=== PATIENT | female | born 2000 | race African-American/Black ===

== ENCOUNTER 2024-01-26 11:03 | Emergency (ER) | payer BC, SELFPAY ==
[2024-01-26 11:08] VITALS: BP 107/71; PULSE 128; RESP 16; TEMP 37.9; O2SAT 97; BMI 26.2
--- NOTE | 2024-01-26 11:28 | ED.GENADULT ---
HPI - General Adult General Chief complaint: Sore Throat Stated complaint: Sore throat Time Seen by Provider: 01/26/24 11:06 History of Present Illness HPI narrative: This 23-year-old female comes in reporting sore throat for the past 4 5 days. She states that is very difficult for her to swallow and it hurts to talk. She does not have a cough. She does arrive with a borderline fever and temperature at 1 100.2? F. she does not report any shortness of breath. Related Data Previous Rx's ?Medication ?Instructions ?Recorded amoxicillin 875 mg-potassium 1 tab PO BID #14 tabs 01/26/24 clavulanate 125 mg tablet ketorolac 10 mg tablet 10 mg PO Q8H 5 days #15 tabs 01/26/24 methylprednisolone 4 mg tablets in See Rx Instructions PO .COMPLEX 01/26/24 a dose pack (Medrol (Kvng)) #21 ea Allergies Allergy/AdvReac Type Severity Reaction Status Date / Time No Known Drug Allergies Allergy Verified 01/26/24 11:14 Review of Systems Status of ROS: Reports: 10 or more systems reviewed and unremarkable except as noted in History and below Narrative: Constitutional: No fevers, no weight gain or loss. Eyes: No discharge. No vision changes. HENT: No congestion, no ear pain. Sore throat as described above. Cardiovascular: No chest pain, no palpitations. Respiratory: No shortness of breath, no wheezes, no cough. Gastrointestinal: No abdominal pain, no vomiting, no diarrhea. Genitourinary: No dysuria, no hematuria. Musculoskeletal: Normal range of motion. Skin: No rashes, no pruritis. Neurological: No dizziness, weakness, sensory change, speech change. Endo/Heme/Allergies: No bruising or bleeding. No polydipsia. Pysch: no suicidality, no anxiety, no insomnia. All other systems reviewed and are negative. PFSH PFSH Social History Smoking Status: Never smoker How often do you have a drink containing alcohol: 2-3 times a week AUDIT-C Alcohol total score: 3 Non-prescribed substance use: denies use Exam Narrative: Exam Narrative: Constitutional: Well-developed, well-nourished, no acute distress. HEENT: Normocephalic, atraumatic. Oropharynx shows erythema without findings suspicious of tonsillar abscess. There is moderate bilateral tonsillar swelling. I do not see any exudate. She does have some trismus but no muffled voice. She has some bilateral cervical lymphadenopathy. Neck: Normal range of motion. Nontender. Supple. Heart: Regular. No murmurs. Normal rate. Intact distal pulses. Lungs: Clear to auscultation. No chest discomfort. No wheezes, rhonchi, or rales. Abdomen: Normal bowel sounds. Nontender. No rebound tenderness. Genitalia: Deferred. Back: No midline tenderness. Normal range of motion. Extremities: Normal range of motion. No injury. Skin: Intact. No rash. Warm. No erythema or pallor. Neurologic: No altered sensation. No weakness. Alert and oriented. Psychiatric: No suicidality. No anxiety or depression. No insomnia. Nursing notes and vitals signs are reviewed. Const: Vital Signs, click to edit/add: Vital Signs - 24 hr 01/26/24 11:08 Temperature 100.2 F H Pulse Rate [Pulse Oximeter] 128 H Respiratory Rate 16 Blood Pressure [Ri ght Upper Arm] 107/71 Pulse Oximetry 97 Oxygen Delivery Me thod Room Air Course Vital Signs Vital signs: Initial Vital Signs Temperature 100.2 F H 01/26/24 11:08 Temperature Source Temporal Artery Scan 01/26/24 11:08 Pulse Rate 128 H 01/26/24 11:08 Respiratory Rate 16 01/26/24 11:08 Respiratory Effort Normal 01/26/24 11:08 Respiratory Depth Normal 01/26/24 11:08 Respiratory Pattern Normal 01/26/24 11:08 Blood Pressure 107/71 01/26/24 11:08 Blood Pressure Mean 83 01/26/24 11:08 Pulse Oximetry 97 01/26/24 11:08 Oxygen Delivery Method Room Air 01/26/24 11:08 Vital Signs Temperature 100.2 F H 01/26/24 11:08 Pulse Rate 128 H 01/26/24 11:08 Respiratory Rate 16 01/26/24 11:08 Blood Pressure 107/71 01/26/24 11:08 Pulse Oximetry 97 01/26/24 11:08 Oxygen Delivery Method Room Air 01/26/24 11:08 Temperature 100.2 F H 01/26/24 11:08 Pulse Rate 128 H 01/26/24 11:08 Respiratory Rate 16 01/26/24 11:08 Blood Pressure 107/71 01/26/24 11:08 Pulse Oximetry 97 01/26/24 11:08 Oxygen Delivery Method Room Air 01/26/24 11:08 Medications Administered Medications: Discontinued Medications Generic Name Dose Route Start Last Admin Trade Name Marlo PRN Reason Stop Dose Admin Dexamethasone 10 mg 01/26/24 11:26 01/26/24 11:35 Dexamethasone 10 Mg/Ml Inj PO 01/26/24 11:27 10 mg ONCE ONE Administration Ketorolac Tromethamine 10 mg 01/26/24 11:34 01/26/24 11:43 Ketorolac 10 Mg Tablet PO 01/26/24 11:35 10 mg ONCE ONE Administration Medical Decision Making MDM Narrative Medical decision making narrative: This patient received an oral dose of dexamethasone and Toradol for symptomatic relief. Rapid strep test returns negative. The patient does have some trismus and has had sore throat for 5 days. There is tonsillar swelling but no significant enough findings to warrant CT imaging at this time. I did prescribe Augmentin, Toradol, and Medrol Dosepak and instructed her to return if not improving. Lab Data Labs: Lab Results 01/26/24 Range/Units 11:35 Group A Strep DNA NOT DETECTED (Not Detectd) Discharge Plan Discharge Clinical Impression: Acute tonsillitis Patient Disposition: Home, Self-Care Condition: Improved Additional Instructions: Take medications as prescribed. Follow up with MD or return if worsening symptoms occur. Prescriptions: New ketorolac 10 mg tablet 10 mg PO Q8H 5 Days Qty: 15 0RF methylprednisolone [Medrol (Kvng)] 4 mg tablets,dose pack See Rx Instructions .ROUTE .COMPLEX Qty: 21 0RF Rx Instructions: orally per package directions amoxicillin-pot clavulanate 875-125 mg tablet 1 tab PO BID Qty: 14 0RF Follow Up/Referrals: Provider,Not a Local [Primary Care Provider] - Stand Alone Forms: [facility] Info Instructions
[2024-01-26] MEDS: dexAMETHasone 10 MG/ML inj PO (11:35)
[2024-01-26] MEDS: KETOROLAC 10 MG TABLET PO (11:43)
[2024-01-26 12:10] LABS: Strep A DNA Probe* NOT DETECTED (Not Detectd)
== END 2024-01-26 12:52 | disposition home or self-care (01) ==
PROVIDERS: Emergency Provider Emergency Medicine Emergency Medical Services
DX: J03.90 Acute tonsillitis, unspecified (principal)
CPT/HCPCS: 87651; 99283; 99284; A9270; J1100

== ENCOUNTER 2024-01-27 10:28 | Observation (INO) | payer BC, SELFPAY ==
[2024-01-27] VITALS (11 sets, daily range): BP systolic 92–108; BP diastolic 60–70; PULSE 90–118; RESP 16–20; TEMP 36.6–37; O2SAT 98–100; BMI 26.0; BMI 25.8
--- NOTE | 2024-01-27 10:52 | ED.GENADULT ---
HPI - General Adult General Date Seen: 01/27/24 Chief complaint: Ear/Nose/Throat Problem Stated complaint: swollen tonsils abscess rupture Time Seen by Provider: 01/27/24 10:52 History of Present Illness HPI narrative: 23-year-old female returns to the ER today for evaluation of sore throat. She was seen in this ER yesterday. At that time she had a sore throat for 4-5 days and painful swallowing and pain for with talking. No cough. She had a low-grade fever yesterday. She had erythema of her pharynx without finding suspicious for tonsillar abscess. Bilateral tonsillar swelling. No exudates. She did have some trismus. No voice muffling. Bilateral cervical lymphadenopathy. Nurses who are here with me today report that they were working yesterday and that she did have difficulty opening her mouth for exam and difficulty of opening her mouth to get the strep swab Strep swab yesterday was negative. However given the amount of erythema and swelling, with the trismus she was put on a Medrol Dosepak, treated with Toradol, and put on Augmentin. She says she has been feeling a bit better since yesterday. She is able to talk and swallow better this morning. No trouble breathing. Her previous trouble opening her mouth is actually better. She took her 1st dose of the steroids this morning. She has not started her Augmentin yet. She went to [facility]. While at [facility] she felt something rupture in the back of her throat and since then she has been having some foul tasting material draining from her tonsil. Related Data Previous Rx's ?Medication ?Instructions ?Recorded amoxicillin 875 mg-potassium 1 tab PO BID #14 tabs 01/26/24 clavulanate 125 mg tablet ketorolac 10 mg tablet 10 mg PO Q8H 5 days #15 tabs 01/26/24 methylprednisolone 4 mg tablets in See Rx Instructions PO .COMPLEX 01/26/24 a dose pack (Medrol (Kvng)) #21 ea Allergies Allergy/AdvReac Type Severity Reaction Status Date / Time No Known Drug Allergies Allergy Verified 01/27/24 10:37 [facility] Social History Smoking Status: Never smoker How often do you have a drink containing alcohol: 2-3 times a week AUDIT-C Alcohol total score: 3 Non-prescribed substance use: denies use Exam Narrative: Exam Narrative: Constitutional: Appears well-developed and well-nourished. Alert. Conversant. No trismus (up reportedly had trismus yesterday but now she is able to open her mouth widely) no stridor. Phonation normal Non toxic. HENT: Head: Atraumatic. Nose: Nose normal. Mouth/Throat: Oral mucosa is clear and moist. no trismus. Pharynx deeply erythematous bilaterally. There is suggestion of some right tonsillar asymmetric enlargement with complaint to the left and maybe some midline shift of the uvula from the right to the left. I do not see any active bleeding or drainage. Tongue normal. Submandibular tissues normal. Eyes: Conjunctivae normal. EOM normal. Pupils equal, round, and reactive to light. No scleral icterus. Neck: Normal range of motion. Neck supple. No tracheal deviation present. Cardiovascular: Normal rate, regular rhythm. No gallop. No friction rub. No murmur heard. Symmetric radial artery pulses Pulmonary/Chest: Effort normal. No stridor. No respiratory distress. No wheezes. No rales. No rhonchi . No tenderness. Musculoskeletal: RUE: Normal range of motion. No tenderness. No deformity LUE: Normal range of motion. No tenderness. No deformity RLE: Normal range of motion. No edema. No tenderness. No deformity LLE: Normal range of motion. No edema. No tenderness. No deformity Lymph: Right> left anterior cervical adenopathy. Neurological: Alert and oriented to person, place, and time. Normal strength. CN II-VII intact. No sensory deficit. GCS eye subscore is 4. GCS verbal subscore is 5. GCS motor subscore is 6. Normal coordination Skin: Skin is warm and dry. No rash noted. No pallor. Normal capillary refill. Psychiatric: Normal mood. Normal affect. Const: Vital Signs, click to edit/add: Vital Signs - 24 hr 01/27/24 10:34 Temperature 97.9 F Pulse Rate [Pulse Oximeter] 118 H Respiratory Rate 20 Blood Pressure [Ri ght Upper Arm] 108/70 Pulse Oximetry 99 Oxygen Delivery Me thod Room Air Course Vital Signs Vital signs: Initial Vital Signs Temperature 97.9 F 01/27/24 10:34 Temperature Source Temporal Artery Scan 01/27/24 10:34 Pulse Rate 118 H 01/27/24 10:34 Respiratory Rate 20 01/27/24 10:34 Blood Pressure 108/70 01/27/24 10:34 Blood Pressure Mean 82 01/27/24 10:34 Blood Pressure Position Sitting 01/27/24 10:34 Pulse Oximetry 99 01/27/24 10:34 Oxygen Delivery Method Room Air 01/27/24 10:34 Vital Signs Temperature 97.9 F 01/27/24 10:34 Pulse Rate 118 H 01/27/24 10:34 Respiratory Rate 20 01/27/24 10:34 Blood Pressure 108/70 01/27/24 10:34 Pulse Oximetry 99 01/27/24 10:34 Oxygen Delivery Method Room Air 01/27/24 10:34 Temperature 97.9 F 01/27/24 10:34 Pulse Rate 118 H 01/27/24 10:34 Respiratory Rate 20 01/27/24 10:34 Blood Pressure 108/70 01/27/24 10:34 Pulse Oximetry 99 01/27/24 10:34 Oxygen Delivery Method Room Air 01/27/24 10:34 Medications Administered Medications: Discontinued Medications Generic Name Dose Route Start Last Admin Trade Name Freq PRN Reason Stop Dose Admin Ampicillin Sodium/Sulbactam 100 mls @ 200 mls/hr 01/27/24 12:38 01/27/24 12:45 Sodium 3 gm/ Sodium Chloride IVPB 01/27/24 12:39 200 mls/hr ONCE ONE Administration Medical Decision Making MDM Narrative Medical decision making narrative: Pleasant generally healthy 23-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 She was seen yesterday in the ER for this pharyngitis and exam was apparently notable for significant trismus but no definite airway asymmetry. She was negative for strep but put on empiric Augmentin any way. She has not started the Augmentin yet but did receive a dose of steroids yesterday and another dose of steroids (orally) at home this morning. She started developing drainage (from her right tonsil, she thinks close is this this morning. Clinical exam reveals a patent airway, no trismus today so it must be much improved compared to yesterday. She is tachycardic but blood pressure is stable. She is afebrile. Labs show a white count of 14. Mccreary negative. CT scan of the patient's neck was undertaken to look for possible peritonsillar abscess. It does show a 13 mm peritonsillar abscess on the right and a 10 mm. Tonsillar abscess on the left. On the CT scan there is subtle asymmetry with the right tonsil and peritonsillar tissues being larger than the left. Discussed with our ENT, Dr. Clifford. He would recommend that we admit the patient for IV antibiotics and continue steroids. Given the size of these abscesses he would not recommend an immediate drainage. He would expect these abscesses should heal with antibiotics. First dose IV Unasyn administered here in the ER. Overall the patient is clinically well appearing and symptomatically much improved today compared to yesterday. Discussed test results with the patient, her college friend, and her parents (via FaceTime). Recommended that we admit for IV antibiotics. Patient is not sure she was stay in the hospital since she is doing so much better today compared to yesterday. Discussed that with bilateral abscesses she may yet need surgical drainage and perhaps our best chance of avoiding that would be IV antibiotics. Patient agrees for admission. Discussed with our hospitalist, Dr. Price who graciously came to the ER to evaluate this patient. Lab Data Labs: Lab Results 01/27/24 Range/Units 11:15 WBC 14.31 H (4.50-11.00) K/uL RBC 4.03 (4.00-5.20) m/uL Hgb 11.5 L (12.0-16.0) gm/dL Hct 35.4 (33.0-51.0) % MCV 88 (80-100) fL MCH 29 (26-34) pg MCHC 33 (32-36) gm/dL RDW Coeff of Mari 12.8 (11.5-15.5) % Plt Count 352 (140-440) K/uL Neut % (Auto) 78.1 H (42.0-72.0) % Lymph % (Auto) 12.9 L (20-44) % Mccreary % (Auto) 8.5 (0.0-11.0) % Eos % (Auto) 0.1 (0.0-7.0) % Baso % (Auto) 0.3 (0.0-3.0) % Neut # (Auto) 11.20 H (1.7-7.0) K/uL Lymph # (Auto) 1.80 (0.90-2.90) K/uL Mccreary # (Auto) 1.20 H (0.00-0.90) K/UL Eos # (Auto) 0.00 (0.00-0.50) K/uL Baso # (Auto) 0.00 (0.00-0.30) K/uL Abs Immat Gran (auto) 0.00 (0.00-0.30) K/uL Imm/Tot Granulo (auto) 0.1 % Sodium 137 (135-149) mmol/L Potassium 3.2 L (3.6-5.1) mmol/L Chloride 101 (96-114) mmol/L Carbon Dioxide 23 (20-32) mmol/L Anion Gap 13 (7-15) mEq/L BUN 16 (5-24) mg/dL Creatinine 0.7 (0.5-1.5) mg/dL Estimated Creat Clear 105.60 Estimated GFR 126 ml/min Glucose 105 (60-115) mg/dL Calcium 9.3 (8.4-10.6) mg/dL Monoscreen Negative (Negative) Imaging Data CT neck soft tissue with contrast: Attestation: I have reviewed the pertinent imaging results. My impression: Right peritonsillar or tonsillar hypoechoic fluid collection suspicious for abscess. Also possible left peritonsillar abscess as well. awaiting radiology read Radiologist's impression: FINDINGS: Normal bilateral parotid and submandibular glands. Normal thyroid gland. Enlargement of bilateral level 2 and 3 lymph nodes which are likely reactive. There is enlargement of the bilateral tonsillar pillars. Edema and inflammation within the parapharyngeal fat pads. There are focal areas of low-attenuation within the peritonsillar soft tissues measures approximate 13 mm maximal diameter on the right and 10 mm maximum diameter left (series 3, image 19) consistent with peritonsillar abscess formation. Edema and inflammation extends into the mucosa submucosa of the oropharynx. Normal thickness of the epiglottis. No mass is imaged the base of tongue. Normal glottis with symmetric vocal cords. Lung apices are clear. Normal alignment of cervical spine. No prevertebral soft tissue swelling. FINDINGS: 1. Bilateral peritonsillar abscesses, [id number]-left. 2. Edema and inflammation extends into the mucosa and submucosa at the oropharynx. 3. No prevertebral soft tissue swelling. 4. Reactive adenopathy Discharge Plan Discharge Clinical Impression: Peritonsillar abscess, Acute tonsillitis Prescriptions: No Action ketorolac 10 mg tablet 10 mg PO Q8H 5 Days Qty: 15 0RF methylprednisolone [Medrol (Kvng)] 4 mg tablets,dose pack See Rx Instructions .ROUTE .COMPLEX Qty: 21 0RF Rx Instructions: orally per package directions amoxicillin-pot clavulanate 875-125 mg tablet 1 tab PO BID Qty: 14 0RF Follow Up/Referrals: Provider,Not a Local [Primary Care Provider] -
--- NOTE | 2024-01-27 11:08 | CRLHL7_ITS ---
For Patients: As a result of the Century Cures Act, medical imaging exams and procedure reports are released immediately into your electronic medical record. You may view this report before your referring provider. If you have questions, please contact your health care provider. INDICATION: Pharyngitis. COMPARISON: None. TECHNIQUE: CT soft tissue neck with IV contrast. ICD 370, 50 60 cc. FINDINGS: Normal bilateral parotid and submandibular glands. Normal thyroid gland. Enlargement of bilateral level 2 and 3 lymph nodes which are likely reactive. There is enlargement of the bilateral tonsillar pillars. Edema and inflammation within the parapharyngeal fat pads. There are focal areas of low-attenuation within the peritonsillar soft tissues measures approximate 13 mm maximal diameter on the right and 10 mm maximum diameter left (series 3, image 19) consistent with peritonsillar abscess formation. Edema and inflammation extends into the mucosa submucosa of the oropharynx. Normal thickness of the epiglottis. No mass is imaged the base of tongue. Normal glottis with symmetric vocal cords. Lung apices are clear. Normal alignment of cervical spine. No prevertebral soft tissue swelling. FINDINGS: 1. Bilateral peritonsillar abscesses, [id number]-mcih-left. 2. Edema and inflammation extends into the mucosa and submucosa at the oropharynx. 3. No prevertebral soft tissue swelling. 4. Reactive adenopathy Please note that all CT scans at this facility use dose modulation, iterative reconstruction, and/or weight-based dosing when appropriate to reduce radiation dose to as low as reasonably achievable. Dictated by Armond Falk MD @ 01/27/2024 12:17:11 PM (Electronically Signed)
[2024-01-27 11:34] LABS: Basophils Percent Auto 0.3 % (0.0-3.0); Eosinophils Percent Auto 0.1 % (0.0-7.0); Hematocrit 35.4 % (33.0-51.0); Hemoglobin* 11.5 gm/dL (12.0-16.0); Immature Granulocytes Pct Auto 0.1 %; Lymphocytes Percent Auto 12.9 % (20-44); Mean Corpuscular HGB Conc 33 gm/dL (32-36); Mean Corpuscular Hemoglobin 29 pg (26-34); Mean Corpuscular Volume 88 fL (80-100); Monocytes Percent Auto 8.5 % (0.0-11.0); Neutrophils Percent Auto 78.1 % (42.0-72.0); Platelet Count* 352 K/uL (140-440); RDW Coefficient of Variation % 12.8 % (11.5-15.5); Red Blood Count 4.03 m/uL (4.00-5.20); White Blood Count* 14.31 K/uL (4.50-11.00)
[2024-01-27 11:35] LABS: Slide Review Reflex No
[2024-01-27 11:46] LABS: Chloride* 101 mmol/L (96-114)
[2024-01-27 11:47] LABS: Potassium* 3.2 mmol/L (3.6-5.1); Sodium* 137 mmol/L (135-149)
[2024-01-27 11:49] LABS: Creatinine* 0.7 mg/dL (0.5-1.5); Estimated Glomerular Filt Rate 126 ml/min
[2024-01-27 11:50] LABS: Anion Gap 13 mEq/L (7-15); Blood Urea Nitrogen* 16 mg/dL (5-24); Calcium* 9.3 mg/dL (8.4-10.6); Carbon Dioxide* 23 mmol/L (20-32); Glucose* 105 mg/dL (60-115)
[2024-01-27 11:53] LABS: Mono Screen* Negative (Negative)
[2024-01-27] MEDS: AMPICILLIN/SULBACTAM 3 GM in 0.9 % SODIUM CHLORIDE Mini-bag 100 ML IVPB ×2 (12:45→18:54)
--- NOTE | 2024-01-27 13:42 | PM.IMHP1 ---
Hospitalist- H&P: HPI History of Present Illness Date Seen: 01/27/24 Chief complaint: swollen tonsils abscess rupture Narrative: Brooke Black is a 23 year old previously healthy female admitted through the emergency department with 1 week history of worsening sore throat. Symptoms started a week ago. Admitting getting progressively worse over the past week. She was seen in our emergency department yesterday where she was diagnosed with tonsillitis and started on Augmentin, Ketoralac, Medrol Dosepak. She was feeling a little better today except her right tonsil where she is having most of the pain started to drain some purulent material into her throat. She has had some trismus and some difficulty eating solid food. It is painful to swallow. She does not feel like she is having trouble breathing or that she is losing her voice. She did have a fever yesterday. She has had some nasal congestion. No significant cough. No abdominal pain, nausea or vomiting. Strep and mono tests are negative. CT shows bilateral peritonsillar abscesses right greater than left, 13 mm and 10 mm. 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 Home is [facility]. No previous hospitalizations. Previous surgery with wisdom teeth extraction and dental surgery. No chronic medical problems. No chronic medications. No drug allergies. She drinks alcohol socially. She does not smoke. She does not use recreational drugs. Review of Systems Narrative: Unremarkable except as noted above [facility] Medical History (Updated 01/27/24 @ 13:54 by Danny Price MD) Migraines ?G43.909 - Migraine, unspecified, not intractable, without status migrainosus (ICD-10) Surgical History (Updated 01/27/24 @ 13:49 by Danny Price MD) [place] teeth extracted ?K08.409 - Partial loss of teeth, unspecified cause, unspecified class (ICD-10) Family History (Updated 01/27/24 @ 13:49 by Danny Price MD) Mother Breast cancer Social History (Updated 01/27/24 @ 13:50 by Danny Price MD) Narrative: Senior at [employer]. Home is [facility]. Smoking Status: Never smoker How often do you have a drink containing alcohol: 2-3 times a week AUDIT-C Alcohol total score: 3 Non-prescribed substance use: denies use Meds Home Medications and Allergies Allergies Allergy/AdvReac Type Severity Reaction Status Date / Time No Known Drug Allergies Allergy Verified 01/27/24 10:37 Exam Narrative: Exam Narrative: She is alert and appears in no distress. Slight muffling of her voice when she speaks. Eyes normal. Pinnas external canals and TMs normal. Oropharynx with mild trismus. Bilateral tonsillar swelling and erythema and exudate, right greater than left. Tonsils nearly meet in the midline. Neck is supple. She has mild tenderness and adenopathy in the right anterior cervical chain. No significant adenopathy or tenderness on the left. No stridor. Respirations are clear to auscultation. Cardiovascular: S1, S2, regular tachycardia. Abdomen is soft without tenderness or hepato splenomegaly. No rash. Intact pulses and good perfusion in all 4 extremities. Const: Vital Signs, click to edit/add: Vital Signs - 24 hr 01/27/24 10:34 Temperature 97.9 F Pulse Rate [Pulse Oximeter] 118 H Respiratory Rate 20 Blood Pressure [Ri ght Upper Arm] 108/70 Pulse Oximetry 99 Oxygen Delivery Me thod Room Air Documenting provider has reviewed patient's vital signs: yes Hospitalist - H&P: Result Labs Labs: Short CBC 01/27/24 Range/Units 11:15 WBC 14.31 H (4.50-11.00) K/uL Hgb 11.5 L (12.0-16.0) gm/dL Hct 35.4 (33.0-51.0) % Plt Count 352 (140-440) K/uL BMP 01/27/24 11:15 Sodium 137 Potassium 3.2 L Chloride 101 Carbon Dioxide 23 BUN 16 Creatinine 0.7 Glucose 105 Calcium 9.3 Assessment and Plan Assessment and plan (1) Peritonsillar abscess: Problem comment: Bilateral, right greater than left, 13 and 10 mm. Monitor for worsening. IV antibiotics. Analgesics. Oral fluids as tolerated. Dr. Clifford contacted. Status: Acute (2) Hypokalemia: Problem comment: Likely due to poor p.o. intake recently. Replace and follow Status: Acute Plan Patient admitted to the hospital for IV antibiotics, monitoring of oral intake and airway, pain management. Possible discharge to home in the next day or 2 if clinically improving or ENT surgery if getting worse. Total Time Spent Total Time Spent: Total time spent today is 60 minutes in evaluation and management and discussing with patient and other providers management of peritonsillar abscess
[2024-01-27 13:55] LABS: HCG Qualitative Serum* Negative (Negative)
[2024-01-27] MEDS: POTASSIUM BICARB 25 MEQ EFFERVESCENT TAB PO (15:57)
--- NOTE | 2024-01-27 18:26 | PC.NURSE ---
Shift Note: Pt arrived to unit at 1447. She ambulates independently and appears comfortable at this time. She states her throat feels swollen, but only discomfort on the right side 07/21. She states this is significantly improved from when she believes they ruptured earlier today. VS WNL and LS COA. Afebrile. Pt tolerating full liquids and informed she will be NPO at 0000.
[2024-01-27] MEDS: OXYCODONE 1 MG/ML ORAL SOLN 5 MG PO (21:37)
[2024-01-27] MEDS: ACETAMINOPHEN 160 MG/5 ML CUP 640 MG PO (21:38)
[2024-01-27] MEDS: 0.9 % SODIUM CHLORIDE 250 ml IV (21:40)
[2024-01-27] MEDS: SODIUM CHLORIDE 0.9 % (FLUSH) 10 ML SYRINGE 5 ML IVF (21:40)
[2024-01-28] VITALS (7 sets, daily range): BP systolic 89–99; BP diastolic 53–67; PULSE 79–100; RESP 14–16; TEMP 36.6–37; O2SAT 97–100
[2024-01-28] MEDS: AMPICILLIN/SULBACTAM 3 GM in 0.9 % SODIUM CHLORIDE Mini-bag 100 ML IVPB ×4 (00:10→18:48)
[2024-01-28] MEDS: IBUPROFEN 100 MG/5 ML SUSP 400 MG PO ×3 (00:12→17:50)
--- NOTE | 2024-01-28 04:33 | PC.NURSE ---
Pt NPO since 0000. Pain controlled. Afebrile. IND in room.
[2024-01-28 06:32] LABS: Basophils Percent Auto 0.3 % (0.0-3.0); Eosinophils Percent Auto 0.2 % (0.0-7.0); Hematocrit 36.5 % (33.0-51.0); Hemoglobin* 11.7 gm/dL (12.0-16.0); Immature Granulocytes Pct Auto 0.2 %; Lymphocytes Percent Auto 21.6 % (20-44); Mean Corpuscular HGB Conc 32 gm/dL (32-36); Mean Corpuscular Hemoglobin 29 pg (26-34); Mean Corpuscular Volume 89 fL (80-100); Monocytes Percent Auto 7.6 % (0.0-11.0); Neutrophils Percent Auto 70.1 % (42.0-72.0); Platelet Count* 365 K/uL (140-440); RDW Coefficient of Variation % 12.9 % (11.5-15.5); White Blood Count* 13.13 K/uL (4.50-11.00)
[2024-01-28 06:48] LABS: Chloride* 103 mmol/L (96-114); Potassium* 4.2 mmol/L (3.6-5.1); Sodium* 140 mmol/L (135-149)
[2024-01-28 06:51] LABS: Anion Gap 9 mEq/L (7-15); Carbon Dioxide* 28 mmol/L (20-32); Creatinine* 0.6 mg/dL (0.5-1.5); Est. Creatinine Clearance* 122.35; Estimated Glomerular Filt Rate 131 ml/min
[2024-01-28 06:52] LABS: Blood Urea Nitrogen* 13 mg/dL (5-24); Calcium* 9.3 mg/dL (8.4-10.6); Glucose* 86 mg/dL (60-115)
[2024-01-28 06:53] LABS: Slide Review Reflex No
[2024-01-28] MEDS: ACETAMINOPHEN 160 MG/5 ML CUP 640 MG PO ×2 (09:30→13:30)
[2024-01-28] MEDS: SODIUM CHLORIDE 0.9 % (FLUSH) 10 ML SYRINGE 5 ML IVF ×2 (09:40→21:20)
[2024-01-28] MEDS: dexAMETHasone 4 MG TABLET 10 MG PO (12:04)
--- NOTE | 2024-01-28 13:58 | P.IMPN_ITS ---
Progress Note: A&P Assessment and plan (1) Peritonsillar abscess: Problem details: Bilateral, right greater than left, 13 and 10 mm. Monitor for worsening. IV antibiotics. Analgesics. Oral fluids as tolerated. Dr. Clifford contacted. Status: Acute (2) Hypokalemia: Problem details: Likely due to poor p.o. intake recently. Resolved after replacement. Status: Acute Plan Continue in hospital for 1 more day of IV antibiotics and analgesics management. Anticipate discharge to home if continued improvement. Time Spent With Patient Total time spent: Total time spent today is 40 minutes in evaluation management. Subjective Date Seen: 01/28/24 Interval history: Brooke Black is a 23 year old previously healthy female admitted through the emergency department with 1 week history of worsening sore throat. Symptoms started a week ago. Admitting getting progressively worse over the past week. She was seen in our emergency department yesterday where she was diagnosed with tonsillitis and started on Augmentin, Ketoralac, Medrol Dosepak. She was feeling a little better today except her right tonsil where she is having most of the pain started to drain some purulent material into her throat. She has had some trismus and some difficulty eating solid food. It is painful to swallow. She does not feel like she is having trouble breathing or that she is losing her voice. She did have a fever yesterday. She has had some nasal congestion. No significant cough. No abdominal pain, nausea or vomiting. Strep and mono tests are negative. CT shows bilateral peritonsillar abscesses right greater than left, 13 mm and 10 mm. 01/28/2024: This morning patient reports her throat is hurting worse. Also painful to swallow. When I see her at 9 a.m. the last pain medicine she had was ibuprofen 400 mg about midnight. She received some acetaminophen and ibuprofen this morning and is feeling much better today. Swallowing is going better. She is tolerating clear liquids well. On repeat examination throat exam continues to be stable. Exam Narrative: Exam Narrative: Neck is supple with tenderness primarily on the right side with minimal adenopathy. No stridor. Voice is normal without hoarseness or muffling. Respirations are clear to auscultation. Cardiovascular: S1, S2, regular rate and rhythm. Const: Vital Signs, click to edit/add: Vital Signs - 24 hr 01/27/24 14:49 01/27/24 15:00 01/27/24 15:58 Temperature 97.9 F 98.6 F 98.6 F Pulse Rate [Pulse Oximeter] 98 Pulse Rate [Right Radial] Respiratory Rate 16 16 16 Blood Pressure [Le ft Arm] 97/61 97/61 Blood Pressure [Ri ght Upper Arm] 92/67 Pulse Oximetry 100 100 Oxygen Delivery Me thod Room Air Room Air 01/27/24 17:10 01/27/24 19:21 01/27/24 21:38 Temperature 98.6 F 98.6 F Pulse Rate [Pulse Oximeter] Pulse Rate [Right Radial] Respiratory Rate 16 16 Blood Pressure [Le ft Arm] 98/60 Blood Pressure [Ri ght Upper Arm] Pulse Oximetry 100 100 Oxygen Delivery Pr thod Room Air Room Air 01/27/24 21:42 01/27/24 22:20 01/27/24 22:32 Temperature 98.6 F 98.6 F Pulse Rate [Pulse Oximeter] Pulse Rate [Right Radial] 90 90 Respiratory Rate 16 16 Blood Pressure [Le ft Arm] 102/62 Blood Pressure [Ri ght Upper Arm] Pulse Oximetry 98 Oxygen Delivery Me thod 01/28/24 00:12 01/28/24 02:51 01/28/24 07:27 Temperature 98.6 F 98.5 F 98.5 F Pulse Rate [Pulse Oximeter] Pulse Rate [Right Radial] 96 100 Respiratory Rate 16 14 Blood Pressure [Le ft Arm] 98/67 95/60 Blood Pressure [Ri ght Upper Arm] Pulse Oximetry 99 99 Oxygen Delivery Pr thod Room Air Room Air 01/28/24 07:27 01/28/24 11:18 Temperature 97.8 F Pulse Rate [Pulse Oximeter] Pulse Rate [Right Radial] 100 79 Respiratory Rate 14 14 Blood Pressure [Le ft Arm] 91/59 L Blood Pressure [Ri ght Upper Arm] Pulse Oximetry 100 Oxygen Delivery Me thod Room Air Documenting provider has reviewed patient's vital signs: yes Labs Labs: Laboratory Results - last 24 hr 01/28/24 06:00 WBC 13.13 H RBC 4.10 Hgb 11.7 L Hct 36.5 MCV 89 MCH 29 MCHC 32 RDW Coeff of Mari 12.9 Plt Count 365 Neut % (Auto) 70.1 Lymph % (Auto) 21.6 [place] % (Auto) 7.6 Eos % (Auto) 0.2 Baso % (Auto) 0.3 Neut # (Auto) 9.20 H Lymph # (Auto) 2.80 [place] # (Auto) 1.00 H Eos # (Auto) 0.00 Baso # (Auto) 0.00 Abs Immat Gran (auto) 0.00 Imm/Tot Granulo (auto) 0.2 Sodium 140 Potassium 4.2 Chloride 103 Carbon Dioxide 28 Anion Gap 9 BUN 13 Creatinine 0.6 Estimated Creat Clear 122.35 Estimated GFR 131 Glucose 86 Calcium 9.3
--- NOTE | 2024-01-28 19:02 | PC.NURSE ---
End of shift: Patient pleasant and cooperative. Patient with soft BPs but vitally stable, lungs clear, BS WNL, IV SL and intact. Patient independent in room. Patient rates throat on right side at most 3/10, although with first attempt of taking in fluids patient was in tears due to pain this morning. Tylenol and ibuprofen given x2 this shift. Patient tolerating diet, eating 1 ice cream for dinner and sipping on fluids. Patient urinating well and had 1 BM today. Active ice used around neck.
[2024-01-29] MEDS: AMPICILLIN/SULBACTAM 3 GM in 0.9 % SODIUM CHLORIDE Mini-bag 100 ML IVPB ×2 (00:37→06:16)
[2024-01-29] MEDS: 0.9 % SODIUM CHLORIDE 250 ml IV (00:42)
[2024-01-29 00:52] VITALS: BP 96/57; PULSE 87; RESP 16; TEMP 36.4; O2SAT 97
[2024-01-29 06:03] VITALS: BP 91/59; PULSE 91; RESP 14; TEMP 36.6; O2SAT 99
[2024-01-29] MEDS: IBUPROFEN 100 MG/5 ML SUSP 400 MG PO (06:15)
--- NOTE | 2024-01-29 06:38 | PC.NURSE ---
Pt is alert and oriented x3. Afebrile. Pt reports 2-/10 pain in throat, managed with cold pack, and PRN medications. Pt reported swelling in right hand, hand elevated overnight, swelling reduced. Pt is up IND, voiding and tolerating a full?liquid diet.?
[2024-01-29] MEDS: SODIUM CHLORIDE 0.9 % (FLUSH) 10 ML SYRINGE 5 ML IVF (07:52)
[2024-01-29 07:53] VITALS: BP 93/60; PULSE 104; RESP 16; TEMP 36.7; O2SAT 100
--- NOTE | 2024-01-29 11:20 | PC.NURSE ---
Patient discharged home. Had PO prescriptions from previous visit. Patient will continue those at home. Patient was tolerating a regular diet, pain controlled with PO liquid pain medications, gargling with salt water after meals, VSS, denies nausea, took shower before leaving. PIV taken out and catheter intact. Patient had no further questions and left with a friend.
--- NOTE | 2024-01-29 12:30 | PM.DS1 ---
DS: Providers Provider Date Seen: 01/29/24 Date of admission: 01/27/24 14:47 Primary care physician: Not a Local Provider Admitting Clinician: Danny Price MD Attending Physician on discharge: Danny Price MD Date of Discharge: 01/29/24 DS: Diagnosis Discharge Diagnosis (1) Peritonsillar abscess: Status: Acute Problem details: Bilateral, right greater than left, 13 and 10 mm. Monitor for worsening. IV antibiotics. Analgesics. Oral fluids as tolerated. Dr. Clifford contacted. DS: Summary Hospital Course Hospital Course: Brooke Black is a 23 year old previously healthy female admitted through the emergency department with 1 week history of worsening sore throat. Symptoms started a week ago. Admitting getting progressively worse over the past week. She was seen in our emergency department yesterday where she was diagnosed with tonsillitis and started on Augmentin, Ketoralac, Medrol Dosepak. She was feeling a little better today except her right tonsil where she is having most of the pain started to drain some purulent material into her throat. She has had some trismus and some difficulty eating solid food. It is painful to swallow. She does not feel like she is having trouble breathing or that she is losing her voice. She did have a fever yesterday. She has had some nasal congestion. No significant cough. No abdominal pain, nausea or vomiting. Strep and mono tests are negative. CT shows bilateral peritonsillar abscesses right greater than left, 13 mm and 10 mm. 01/28/2024: This morning patient reports her throat is hurting worse. Also painful to swallow. When I see her at 9 a.m. the last pain medicine she had was ibuprofen 400 mg about midnight. She received some acetaminophen and ibuprofen this morning and is feeling much better today. Swallowing is going better. She is tolerating clear liquids well. On repeat examination throat exam continues to be stable. 01/29/2024: Patient reports feeling much better today. Swallowing is much better. Pain is much better. She is eating well. Status at Discharge Functional status at discharge: independent ambulation Overall status at discharge: patient is progressing back to baseline Time Spent with Patient Time attestation: Total time spent providing and/or coordinating discharge services: Time spent: Less than 30 minutes Exam Narrative: Exam Narrative: She is alert and appears in no distress. Oropharynx shows improvement in erythema in her posterior pharynx. She had swelling is better. Neck is supple with still mild tenderness in the right anterior cervical chain of nodes. Const: Vital Signs, click to edit/add: Vital Signs - 24 hr 01/28/24 15:00 01/28/24 15:00 01/28/24 17:46 Temperature 98.4 F Pulse Rate [Right Radial] 91 91 92 Respiratory Rate 16 16 Blood Pressure [Le ft Arm] 89/53 L 99/58 L Pulse Oximetry 98 Oxygen Delivery Me thod Room Air 01/28/24 19:00 01/29/24 00:52 01/29/24 06:03 Temperature 98.6 F 97.6 F 97.8 F Pulse Rate [Right Radial] 100 87 91 Respiratory Rate 16 16 14 Blood Pressure [Le ft Arm] 99/57 L 96/57 L 91/59 L Pulse Oximetry 97 97 99 Oxygen Delivery Me thod Room Air Room Air Room Air 01/29/24 07:53 Temperature 98.1 F Pulse Rate [Right Radial] 104 H Respiratory Rate 16 Blood Pressure [Le ft Arm] 93/60 Pulse Oximetry 100 Oxygen Delivery Me thod Room Air Documenting provider has reviewed patient's vital signs: yes DS: Data Imaging CT neck soft tissue: Radiologist's impression: INDICATION: Pharyngitis. COMPARISON: None. TECHNIQUE: CT soft tissue neck with IV contrast. ICD 370, 50 60 cc. FINDINGS: Normal bilateral parotid and submandibular glands. Normal thyroid gland. Enlargement of bilateral level 2 and 3 lymph nodes which are likely reactive. There is enlargement of the bilateral tonsillar pillars. Edema and inflammation within the parapharyngeal fat pads. There are focal areas of low-attenuation within the peritonsillar soft tissues measures approximate 13 mm maximal diameter on the right and 10 mm maximum diameter left (series 3, image 19) consistent with peritonsillar abscess formation. Edema and inflammation extends into the mucosa submucosa of the oropharynx. Normal thickness of the epiglottis. No mass is imaged the base of tongue. Normal glottis with symmetric vocal cords. Lung apices are clear. Normal alignment of cervical spine. No prevertebral soft tissue swelling. FINDINGS: 1. Bilateral peritonsillar abscesses, qgvak-[id number]-adsq-left. 2. Edema and inflammation extends into the mucosa and submucosa at the oropharynx. 3. No prevertebral soft tissue swelling. 4. Reactive adenopathy Discharge Plan Discharge Disposition: Home, Self-Care Date of Admission: 01/27/24 14:47 Attending Provider on Discharge: Danny Price Primary Care Provider: Provider,Not a Local Condition: Improved Anticipated Discharge Date/Time: 01/29/24 08:00 Discharge Medications: Continued ketorolac 10 mg tablet 10 mg PO Q8H 5 Days Qty: 15 0RF amoxicillin-pot clavulanate 875-125 mg tablet 1 tab PO BID Qty: 14 0RF Discontinued methylprednisolone [Medrol (Kvng)] 4 mg tablets,dose pack See Rx Instructions .ROUTE .COMPLEX Qty: 21 0RF Rx Instructions: orally per package directions Discharge Orders: Discharge Order (Routine); Ordered 01/29/24 Ordered By: Danny Price Patient Education: Amoxicillin (By mouth), Ketorolac (By mouth) (Toradol), Peritonsillar Abscess (DC) Activity Level: No Restrictions Discharge Diet: Regular Follow Up Appointments: Provider,Not a Local [Primary Care Provider] - (As needed) Forms: [facility] Inst[facility]
== END 2024-01-29 11:20 | disposition home or self-care (01) ==
LOC: ED 11:39 → MEDSURG 14:48
PROVIDERS: Admitting Provider Family Medicine; Emergency Provider Emergency Medicine; Visit Provider Family Medicine
DX: J36 Peritonsillar abscess (principal); E87.6 Hypokalemia
CPT/HCPCS: 36415; 70491; 80048; 84703; 85025; 86308; 96365; 96366; 99283; 99284; A9270; G0378; J0295; J7050; Q9967

== ENCOUNTER 2024-02-14 11:47 | Day surgery (SDC) | payer BC, SELFPAY ==
[2024-02-14] VITALS (12 sets, daily range): BP systolic 91–112; BP diastolic 42–74; PULSE 92–115; RESP 14–116; TEMP 36.6–37.3; O2SAT 96–100; BMI 26.9
--- NOTE | 2024-02-14 12:16 | CRLHL7_ITS ---
For Patients: As a result of the Century Cures Act, medical imaging exams and procedure reports are released immediately into your electronic medical record. You may view this report before your referring provider. If you have questions, please contact your health care provider. Indication: Sore throat, history of peritonsillar abscess 2 weeks prior Technique: Volumetric multidetector CT images of the cervical soft tissues were obtained after the administration of low osmolar intravenous contrast. 58 cc Isovue 370 low osmolar intravenous contrast Comparison: CT soft tissue neck January 27, 2024 Findings: The partially visualized brain parenchyma is normal in attenuation without evidence of abnormal enhancement. The orbits and their contents are within normal limits. The paranasal sinuses are clear. The mastoid air cells are clear. There is moderate hypertrophic appearance of the adenoids with mucosal hyperemia. There is overall improved right-sided peritonsillar abscess from previous exam which demonstrates complete resolution. There is persistent moderate to severe enlargement of the bilateral palatine tonsils with demonstration of persistent to slightly increased left-sided peritonsillar abscess measuring 1.7 x 1.4 centimeters, previously measuring 1.1 centimeters. The hypopharynx is clear. There is minimal edema in the left parapharyngeal space, base of tongue and superior aspect of the submandibular space. The vocal folds are nonthickened with symmetrical appearance. The thyroid gland is normal in attenuation. Reactive xrek-ghgfjbf-rrcn-right cervical lymph nodes are appreciated. The jugular veins are patent. The carotid arteries demonstrate no significant atherosclerotic narrowing. The lung apices are clear. There is mild likely spasmodic reversal of the normal cervical lordosis. No evidence of significant retropharyngeal or prevertebral soft tissue swelling/fluid. Impression: 1. Overall, complete resolution of previously seen right-sided peritonsillar abscess from previous exam with moderate persistent enlargement of the right palatine tonsil commensurate with tonsillitis. 2. Redemonstration and increased size of previously seen left-sided peritonsillar abscess measuring 1.7 x 1.4 centimeters, previously measuring 1.1 centimeters with mild edema in the left parapharyngeal space extending to the left base of tongue and submandibular space which could represent mild Sam`s angina changes. Correlate with history of clinical symptoms. Please note that all CT scans at this facility use dose modulation, iterative reconstruction, and/or weight-based dosing when appropriate to reduce radiation dose to as low as reasonably achievable. Dictated by Richie Sheffield MD @ 02/14/2024 1:13:07 PM (Electronically Signed)
--- NOTE | 2024-02-14 12:22 | ED_ITS ---
HPI - General Adult General Chief complaint: Sore Throat Stated complaint: Throat pain/swelling Time Seen by Provider: 02/14/24 12:02 Source: patient Mode of arrival: ambulatory Limitations: no limitations History of Present Illness HPI narrative: 23-year-old female coming in today complaining of a sore throat started last night. Patient was recently treated for appear tonsillar abscess with oral antibiotics, felt better after treatment. This was diagnosed about 2 weeks ago. However last night she developed worsening pain, difficulty opening closing her mouth, difficulty swallowing. She denies any fevers or chills. No nausea or vomiting. Pain is located mostly on the left side of the throat. Related Data Allergies Allergy/AdvReac Type Severity Reaction Status Date / Time No Known Drug Allergies Allergy Verified 02/14/24 12:10 Review of Systems Status of ROS: Reports: 10 or more systems reviewed and unremarkable except as noted in History and below [facility] Medical History Migraines ?G43.909 - Migraine, unspecified, not intractable, without status migrainosus (ICD-10) Surgical History [place] teeth extracted ?K08.409 - Partial loss of teeth, unspecified cause, unspecified class (ICD- 10) Family History Mother Breast cancer Social History Narrative: Senior at [employer]. Home is [facility]. What is your current living situation?: I presently have a place to live Problems where you live: no known problems Problems where you live details: none In the past 12 months, utilities in danger of being shut off: no In past 12 months, lack of transportation kept you from medical appts, meetings, work, or getting things needed for daily living: no In the past 12 mos, have been you worried that your food would run out before you had money to buy more?: never true In the past 12 mos, the food you bought just didn't last and you didn't have money to buy more?: never true Highest level of school completed/degree received: some college, no degree Smoking Status: Never smoker Do you use any of these nicotine containing products: None Second hand tobacco smoke exposure: No How often do you have a drink containing alcohol: 2-3 times a week Alcohol type: beer and wine Alcohol type details: I don't drink any hard liquor How many standard drinks containing alcohol do you have on a typical day: 1 or 2 How often do you have six or more drinks on one occasion: Never AUDIT-C Alcohol total score: 3 Non-prescribed substance use: denies use Caffeine: Yes (1-2 cups tea) How often does anyone, including family, friends and others, physically hurt you : never How often does anyone, including family, friends and others, insult or talk down to you: rarely How often does anyone, including family, friends and others, threaten you with harm: never How often does anyone, including family, friends and others, scream or curse at you: never service: No Exam Narrative: Exam Narrative: Well-nourished well-developed patient in no acute distress. Alert and oriented. Answers questions appropriately. Mood and affect are appropriate. Thoughts are goal oriented and rational. No tangential or magical thinking noted. Patient speaks in full sentences without needing to catch her breath. Voice is slightly muffled. HEENT: Normocephalic atraumatic. Pupils are equally round reactive to light. Extraocular muscles are intact. Conjunctivae are moist without any icterus noted. Moist mucous membranes. Posterior pharynx shows erythema and swelling of the soft palate with the left side protruding forward. Tongue is normal. Neck is soft with lymphadenopathy present on the left. Cardiovascular: Heart is regular rate and rhythm . Lungs: Clear to auscultation bilaterally. Skin: Well perfused without any obvious rashes. Const: Vital Signs, click to edit/add: Vital Signs - 24 hr 02/14/24 12:04 Temperature 99.2 F Pulse Rate [Pulse Oximeter] 115 H Respiratory Rate 16 Blood Pressure [Ri ght Upper Arm] 101/63 Pulse Oximetry 98 Oxygen Delivery Me thod Room Air Course Course ED Course: CBC is unremarkable aside from 78% neutrophils. Chemistries are normal. CRP 0.6. Negative mono and strep CT shows a growing left-sided peritonsillar abscess. Discussed case with Dr. Palmer who will take the patient to the OR for drainage. IV Unasyn and dexamethasone given in the ED. Vital Signs Vital signs: Initial Vital Signs Temperature 99.2 F 02/14/24 12:04 Temperature Source Temporal Artery Scan 02/14/24 12:04 Pulse Rate 115 H 02/14/24 12:04 Pulse Rhythm Regular 02/14/24 12:04 Pulse Strength 3+ Normal 02/14/24 12:04 Respiratory Rate 16 02/14/24 12:04 Blood Pressure 101/63 02/14/24 12:04 Blood Pressure Mean 75 02/14/24 12:04 Blood Pressure Position Sitting 02/14/24 12:04 Pulse Oximetry 98 02/14/24 12:04 Oxygen Delivery Method Room Air 02/14/24 12:04 Vital Signs Temperature 99.2 F 02/14/24 12:04 Pulse Rate 115 H 02/14/24 12:04 Respiratory Rate 16 02/14/24 12:04 Blood Pressure 101/63 02/14/24 12:04 Pulse Oximetry 98 02/14/24 12:04 Oxygen Delivery Method Room Air 02/14/24 12:04 Temperature 99.2 F 02/14/24 12:04 Pulse Rate 115 H 02/14/24 12:04 Respiratory Rate 16 02/14/24 12:04 Blood Pressure 101/63 02/14/24 12:04 Pulse Oximetry 98 02/14/24 12:04 Oxygen Delivery Method Room Air 02/14/24 12:04 Medications Administered Medications: Discontinued Medications Generic Name Dose Route Start Last Admin Trade Name Freq PRN Reason Stop Dose Admin Dexamethasone 10 mg 02/14/24 13:41 02/14/24 13:58 Dexamethasone 4 Mg/Ml Vial IV 02/14/24 13:42 10 mg ONCE ONE Administration Ampicillin Sodium/Sulbactam 100 mls @ 200 mls/hr 02/14/24 13:41 02/14/24 14:26 Sodium 3 gm/ Sodium Chloride IVPB 02/14/24 13:42 Infused ONCE ONE Infusion Medical Decision Making Lab Data Labs: Lab Results 02/14/24 02/14/24 Range/Units 12:21 12:35 WBC 9.94 (4.50-11.00) K/uL RBC 4.25 (4.00-5.20) m/uL Hgb 12.2 (12.0-16.0) gm/dL Hct 38.0 (33.0-51.0) % MCV 89 (80-100) fL MCH 29 (26-34) pg MCHC 32 (32-36) gm/dL RDW Coeff of Mari 13.9 (11.5-15.5) % Plt Count 293 (140-440) K/uL Neut % (Auto) 78.0 H (42.0-72.0) % Lymph % (Auto) 12.8 L (20-44) % [place] % (Auto) 8.2 (0.0-11.0) % Eos % (Auto) 0.7 (0.0-7.0) % Baso % (Auto) 0.2 (0.0-3.0) % Neut # (Auto) 7.80 H (1.7-7.0) K/uL Lymph # (Auto) 1.30 (0.90-2.90) K/uL [place] # (Auto) 0.80 (0.00-0.90) K/UL Eos # (Auto) 0.07 (0.00-0.50) K/uL Baso # (Auto) 0.02 (0.00-0.30) K/uL Abs Immat Gran (auto) 0.01 (0.00-0.30) K/uL Imm/Tot Granulo (auto) 0.1 % Sodium 136 (135-149) mmol/L Potassium 4.0 (3.6-5.1) mmol/L Chloride 105 (96-114) mmol/L Carbon Dioxide 23 (20-32) mmol/L Anion Gap 8 (7-15) mEq/L BUN 9 (5-24) mg/dL Creatinine 0.5 (0.5-1.5) mg/dL Estimated Creat Clear 152.94 Estimated GFR 137 ml/min Glucose 94 (60-115) mg/dL Calcium 9.4 (8.4-10.6) mg/dL C-Reactive Protein 0.6 (0.5-1.0) mg/dL Monoscreen Negative (Negative) Group A Strep DNA NOT DETECTED (Not Detectd) Imaging Data Soft tissue neck CT: Attestation: I have reviewed the pertinent imaging results. Radiologist's impression: Technique: Volumetric multidetector CT images of the cervical soft tissues were obtained after the administration of low osmolar intravenous contrast. 58 cc Isovue 370 low osmolar intravenous contrast Comparison: CT soft tissue neck January 27, 2024 Findings: The partially visualized brain parenchyma is normal in attenuation without evidence of abnormal enhancement. The orbits and their contents are within normal limits. The paranasal sinuses are clear. The mastoid air cells are clear. There is moderate hypertrophic appearance of the adenoids with mucosal hyperemia. There is overall improved right-sided peritonsillar abscess from previous exam which demonstrates complete resolution. There is persistent moderate to severe enlargement of the bilateral palatine tonsils with demonstration of persistent to slightly increased left-sided peritonsillar abscess measuring 1.7 x 1.4 centimeters, previously measuring 1.1 centimeters. The hypopharynx is clear. There is minimal edema in the left parapharyngeal space, base of tongue and superior aspect of the submandibular space. The vocal folds are nonthickened with symmetrical appearance. The thyroid gland is normal in attenuation. Reactive cnwy-aboszky-bcpw-right cervical lymph nodes are appreciated. The jugular veins are patent. The carotid arteries demonstrate no significant atherosclerotic narrowing. The lung apices are clear. There is mild likely spasmodic reversal of the normal cervical lordosis. No evidence of significant retropharyngeal or prevertebral soft tissue swelling/fluid. Impression: 1. Overall, complete resolution of previously seen right-sided peritonsillar abscess from previous exam with moderate persistent enlargement of the right palatine tonsil commensurate with tonsillitis. 2. Redemonstration and increased size of previously seen left-sided per itonsillar abscess measuring 1.7 x 1.4 centimeters, previously measuring 1.1 centimeters with mild edema in the left parapharyngeal space extending to the left base of tongue and submandibular space which could represent mild Sam`s angina changes. Correlate with history of clinical symptoms. Discharge Plan Discharge Clinical Impression: Peritonsillar abscess Patient Disposition: XFER to OR Condition: Stable Follow Up/Referrals: Provider,Not a Local [Primary Care Provider] -
[2024-02-14 12:53] LABS: Strep A DNA Probe* NOT DETECTED (Not Detectd)
[2024-02-14 12:57] LABS: Basophils Absolute Auto 0.02 K/uL (0.00-0.30); Basophils Percent Auto 0.2 % (0.0-3.0); Eosinophils Absolute Auto 0.07 K/uL (0.00-0.50); Eosinophils Percent Auto 0.7 % (0.0-7.0); Hemoglobin* 12.2 gm/dL (12.0-16.0); Immature Granulocytes Abs Auto 0.01 K/uL (0.00-0.30); Immature Granulocytes Pct Auto 0.1 %; Lymphocytes Percent Auto 12.8 % (20-44); Mean Corpuscular HGB Conc 32 gm/dL (32-36); Mean Corpuscular Hemoglobin 29 pg (26-34); Mean Corpuscular Volume 89 fL (80-100); Monocytes Percent Auto 8.2 % (0.0-11.0); Platelet Count* 293 K/uL (140-440); RDW Coefficient of Variation % 13.9 % (11.5-15.5); Red Blood Count 4.25 m/uL (4.00-5.20); White Blood Count* 9.94 K/uL (4.50-11.00)
[2024-02-14 12:58] LABS: Slide Review Reflex No
[2024-02-14 13:01] LABS: Chloride* 105 mmol/L (96-114); Sodium* 136 mmol/L (135-149)
[2024-02-14 13:03] LABS: Creatinine* 0.5 mg/dL (0.5-1.5); Est. Creatinine Clearance* 152.94; Estimated Glomerular Filt Rate 137 ml/min
[2024-02-14 13:04] LABS: Anion Gap 8 mEq/L (7-15); Blood Urea Nitrogen* 9 mg/dL (5-24); Calcium* 9.4 mg/dL (8.4-10.6); Carbon Dioxide* 23 mmol/L (20-32); Glucose* 94 mg/dL (60-115)
[2024-02-14 13:07] LABS: C Reactive Protein* 0.6 mg/dL (0.5-1.0)
[2024-02-14 13:11] LABS: Mono Screen* Negative (Negative)
[2024-02-14] MEDS: AMPICILLIN/SULBACTAM 3 GM in 0.9 % SODIUM CHLORIDE Mini-bag 100 ML IVPB (13:54)
[2024-02-14] MEDS: dexAMETHasone 4 MG/ML VIAL 10 MG IV (13:58)
[2024-02-14] MEDS: LACTATED RINGERS 1000 ML 1,000 ML 35 ML IV (16:12)
--- NOTE | 2024-02-14 16:14 | P.ENTCN_ITS ---
HPI- ENT Consult Date of Consult Date Seen: 02/14/24 Patient: Other Consult date: 02/14/24 Requesting Physician: Other Primary Care Provider: Not a Local Provider Consult Narrative Reason for consult: Left peritonsillar abscess Narrative: Brooke Black is a 23 year old female was hospitalized 2 weeks ago with bi lateral valdez or intra tonsillar abscesses. Symptoms resolved was discharged on oral meds. Was doing well until a couple of days ago wound pain recurred on the left side. She currently complains of trismus and odynophagia but no did no dyspnea PFSH PFSH Medical History Migraines ?G43.909 - Migraine, unspecified, not intractable, without status migrainosus (ICD-10) Surgical History [place] teeth extracted ?K08.409 - Partial loss of teeth, unspecified cause, unspecified class (ICD- 10) Family History Mother Breast cancer Social History Narrative: Senior at [employer]. Home is [facility]. What is your current living situation?: I presently have a place to live Problems where you live: no known problems Problems where you live details: none In the past 12 months, utilities in danger of being shut off: no In past 12 months, lack of transportation kept you from medical appts, meetings, work, or getting things needed for daily living: no In the past 12 mos, have been you worried that your food would run out before you had money to buy more?: never true In the past 12 mos, the food you bought just didn't last and you didn't have money to buy more?: never true Highest level of school completed/degree received: some college, no degree Smoking Status: Never smoker Do you use any of these nicotine containing products: None Second hand tobacco smoke exposure: No How often do you have a drink containing alcohol: 2-3 times a week Alcohol type: beer and wine Alcohol type details: I don't drink any hard liquor How many standard drinks containing alcohol do you have on a typical day: 1 or 2 How often do you have six or more drinks on one occasion: Never AUDIT-C Alcohol total score: 3 Non-prescribed substance use: denies use Caffeine: Yes (1-2 cups tea) How often does anyone, including family, friends and others, physically hurt you : never How often does anyone, including family, friends and others, insult or talk down to you: rarely How often does anyone, including family, friends and others, threaten you with harm: never How often does anyone, including family, friends and others, scream or curse at you: never service: No Meds Home Medications and Allergies Allergies Allergy/AdvReac Type Severity Reaction Status Date / Time No Known Drug Allergies Allergy Verified 02/14/24 12:10 Exam Narrative: Exam Narrative: General skin neuro respiratory gait peripheral vascular vocal quality skin of head neck are all negative except significant trismus left bulge of superior tonsil airway adequate Const: Vital Signs, click to edit/add: Vital Signs - 24 hr 02/14/24 12:04 Temperature 99.2 F Pulse Rate [Pulse Oximeter] 115 H Respiratory Rate 16 Blood Pressure [Ri ght Upper Arm] 101/63 Pulse Oximetry 98 Oxygen Delivery Me thod Room Air ENT-CN: Result Labs Labs: Short CBC 02/14/24 Range/Units 12:35 WBC 9.94 (4.50-11.00) K/uL Hgb 12.2 (12.0-16.0) gm/dL Hct 38.0 (33.0-51.0) % Plt Count 293 (140-440) K/uL BMP 02/14/24 12:35 Sodium 136 Potassium 4.0 Chloride 105 Carbon Dioxide 23 BUN 9 Creatinine 0.5 Glucose 94 Calcium 9.4 Assessment and Plan Assessment and plan (1) Recurrent peritonsillar abscess: Status: Acute Plan Left peritonsillar abscess recurrent Discussed options of content of IV therapy with antibiotic and steroid versus incision and drainage. Given the enlargement and the fact that this is a recurrent abscess I would favor incision and drainage. Risks of recurrence anesthesia bleeding injury to adjacent structures etc. reviewed. She understands wishes to proceed will schedule
--- NOTE | 2024-02-14 16:29 | W.PM.ENTPROC ---
Procedure Note Date of procedure: 02/14/24 Procedure: Preop diagnosis left peritonsillar abscess Postoperative diagnosis same Procedure incision drainage left peritonsillar abscess Under general endotracheal anesthesia patient was prepped and draped in usual fashion. The McIvor mouth gag was inserted the tongue retracted forward. The needlepoint cautery was used to make an incision just above the left lateral tonsil pole. Blunt dissection was then utilized to enter the abscess cavity by beneath the left tonsil. Approximately 5 mL of pus were drained. The cavity was irrigated with saline 3 times. Bleeding was controlled with electrocautery. The patient procedure was taken recovery in satisfactory condition. Blood loss was 10 mL. Note that a culture was sent of the drainage Surgeon: Griffin Clifford MD
--- NOTE | 2024-02-14 16:45 | SUR.OPER ---
timeout omitted per surgeon due to urgent status in operating room
--- NOTE | 2024-02-14 16:55 | P.ANES_ITS ---
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
--- NOTE | 2024-02-14 19:15 | PC.NURSE ---
shift note: reviewed with pt dc instructions. stressed pt to do soft diet and advance slowly per D.O. IV dc'd intact Lt AC. Pt denied pain in throat. ICe paks sent with pt to use at home for comfort. Pt up to bathroom x2 and voided. pt tolerated liquids and jello w/o nausea. Belongings sent with pt on dc.
== END 2024-02-14 19:00 | disposition home or self-care (01) ==
LOC: ED 15:25 → SS 16:12 → MEDSURG 18:11
PROVIDERS: Emergency Provider Family Medicine; Visit Provider Otolaryngology
PROC: 0C9PXZZ Drainage of Tonsils, External Approach (ICD-10-PCS; CPT 42700; principal; 2024-02-14 16:00)
DX: J36 Peritonsillar abscess (principal)
CPT/HCPCS: 42700; 00170; 36415; 70491; 80048; 85025; 86140; 86308; 87070; 87075; 87076; 87205; 87651; 99140; 99284; 99285; J0295; J0330; J1100; J1630; J2250; J2405; J2704; J3010; J7120; Q9967

== ENCOUNTER 2024-02-19 17:46 | Emergency (ER) | payer BC, SELFPAY ==
[2024-02-19 17:53] VITALS: BP 92/57; PULSE 71; RESP 16; TEMP 36.8; O2SAT 99; BMI 26.9
--- NOTE | 2024-02-19 18:12 | ED_ITS ---
HPI - General Adult General Chief complaint: Post Op Complication Stated complaint: post op complications-bleeding Time Seen by Provider: 02/19/24 18:00 Source: patient Mode of arrival: ambulatory Limitations: no limitations History of Present Illness HPI narrative: 23-year-old female coming in today complaining of postoperative bleeding. Patient had a peritonsillar abscess drained last week by Dr. Mahmood. She states that the pain significantly better however whenever she eats she has little bit of blood in her mouth. Sometimes she swallows the blood and sometimes she spits it out. It does stop bleeding generally a short amount of time. No difficulty breathing. Discomfort with swallowing which is expected. Related Data Previous Rx's ?Medication ?Instructions ?Recorded amoxicillin 500 mg-potassium 1 tab PO TID #20 tabs 02/14/24 clavulanate 125 mg tablet (Augmentin) Allergies Allergy/AdvReac Type Severity Reaction Status Date / Time No Known Drug Allergies Allergy Verified 02/14/24 12:10 Review of Systems Status of ROS: Reports: 6 or more systems reviewed and unremarkable except as noted in History and below PFSH [facility] Medical History Migraines ?G43.909 - Migraine, unspecified, not intractable, without status migrainosus (ICD-10) Surgical History [place] teeth extracted ?K08.409 - Partial loss of teeth, unspecified cause, unspecified class (ICD- 10) Family History Mother Breast cancer Social History Narrative: Senior at [employer]. Home is [facility]. What is your current living situation?: I presently have a place to live Problems where you live: no known problems Problems where you live details: none In the past 12 months, utilities in danger of being shut off: no In past 12 months, lack of transportation kept you from medical appts, meetings, work, or getting things needed for daily living: no In the past 12 mos, have been you worried that your food would run out before you had money to buy more?: never true In the past 12 mos, the food you bought just didn't last and you didn't have money to buy more?: never true Highest level of school completed/degree received: some college, no degree Smoking Status: Never smoker Do you use any of these nicotine containing products: None Second hand tobacco smoke exposure: No How often do you have a drink containing alcohol: 2-3 times a week Alcohol type: beer and wine Alcohol type details: I don't drink any hard liquor How many standard drinks containing alcohol do you have on a typical day: 1 or 2 How often do you have six or more drinks on one occasion: Never AUDIT-C Alcohol total score: 3 Non-prescribed substance use: denies use Caffeine: Yes (1-2 cups tea) How often does anyone, including family, friends and others, physically hurt you : never How often does anyone, including family, friends and others, insult or talk down to you: rarely How often does anyone, including family, friends and others, threaten you with harm: never How often does anyone, including family, friends and others, scream or curse at you: never service: No Exam Narrative: Exam Narrative: Well-nourished well-developed patient in no acute distress. Alert and oriented. Answers questions appropriately. Mood and affect are appropriate. Thoughts are goal oriented and rational. No tangential or magical thinking noted. Patient speaks in full sentences without needing to catch her breath. Voice is not muffled. HEENT: Normocephalic atraumatic. Pupils are equally round reactive to light. Extraocular muscles are intact. Conjunctivae are moist without any icterus noted. Moist mucous membranes. Posterior pharynx appears to be healing appropriately. There is granulation tissue present. No evidence of reinfection. Const: Vital Signs, click to edit/add: Vital Signs - 24 hr 02/19/24 17:53 Temperature 98.2 F Pulse Rate [Pulse Oximeter] 71 Respiratory Rate 16 Blood Pressure [Ri ght Upper Arm] 92/57 L Pulse Oximetry 99 Oxygen Delivery Me thod Room Air Course Course ED Course: I did consult with Dr. Mahmood who recommends switching with cold water when the bleeding occurs. And recommends continuing current postop cares. Vital Signs Vital signs: Initial Vital Signs Temperature 98.2 F 02/19/24 17:53 Temperature Source Temporal Artery Scan 02/19/24 17:53 Pulse Rate 71 02/19/24 17:53 Respiratory Rate 16 02/19/24 17:53 Blood Pressure 92/57 L 02/19/24 17:53 Blood Pressure Mean 68 L 02/19/24 17:53 Blood Pressure Position Sitting 02/19/24 17:53 Pulse Oximetry 99 02/19/24 17:53 Oxygen Delivery Method Room Air 02/19/24 17:53 Vital Signs Temperature 98.2 F 02/19/24 17:53 Pulse Rate 71 02/19/24 17:53 Respiratory Rate 16 02/19/24 17:53 Blood Pressure 92/57 L 02/19/24 17:53 Pulse Oximetry 99 02/19/24 17:53 Oxygen Delivery Method Room Air 02/19/24 17:53 Temperature 98.2 F 02/19/24 17:53 Pulse Rate 71 02/19/24 17:53 Respiratory Rate 16 02/19/24 17:53 Blood Pressure 92/57 L 02/19/24 17:53 Pulse Oximetry 99 02/19/24 17:53 Oxygen Delivery Method Room Air 02/19/24 17:53 Medical Decision Making MDM Narrative Medical decision making narrative: 23-year-old female with some very minor postop bleeding which is expected. We discussed that this is normal. We discussed doing cold water swishes when this occurs. We discussed softer foods to prevent irritation and bleeding. We discussed reasons for follow-up. Patient had no other questions Discharge Plan Discharge Clinical Impression: Post-op bleeding Patient Disposition: Home, Self-Care Condition: Stable Additional Instructions: If you experience bleeding, switch some cold water in her mouth for approximately 5 minutes. Continue eating softer foods to prevent irritation. If you develop a fever or increasing pain, return to the ER. Prescriptions: No Action amoxicillin-pot clavulanate [Augmentin] 500-125 mg tablet 1 tab PO TID Qty: 20 0RF Follow Up/Referrals: Provider,Not a Local [Primary Care Provider] - Stand Alone Forms: [employer] Info Instructions
== END 2024-02-19 18:22 | disposition home or self-care (01) ==
LOC: ED 18:17
PROVIDERS: Emergency Provider Family Medicine
DX: K91.841 Postprocedural hemorrhage of a digestive system organ or structure following other procedure (principal)
CPT/HCPCS: 99283